=== PATIENT | female | born 1980 | race Caucasian/White ===

== ENCOUNTER 2017-08-07 11:36 | Emergency (ER) | payer OTHER ==
[~2017-08-07] VITALS: Ht 165.1 cm; Wt 112.7 kg
[2017-08-07 12:47] LABS: HEMATOCRIT 45.7 % (36.0-46.0); MCH 29.2 PG (29.0-34.0); MCHC 33.7 G/DL (30.0-36.0); MCV 86.7 FL (83-99); MEAN PLAT.VOLUME 9.5 uM^3 (9.5-12.4); PLATELET COUNT 294 K/uL (156-360); RBC DIS.WIDTH-CV 12.1 % (11.8-14.6); RBC DIS.WIDTH-SD 38.8 % (39-53); RED BLOOD COUNT 5.27 M/uL (3.80-5.20); WHITE BLOOD COUNT 12.5 K/uL (4.1-10.2)
[2017-08-07 12:57] LABS: CHLORIDE 110 mEq/L (99-109); POTASSIUM 4.3 mEq/L (3.7-5.4); SODIUM 139 mEq/L (136-147)
[2017-08-07 12:59] LABS: GLUCOSE 94 mg/dL (70-99)
[2017-08-07 13:00] LABS: ANION GAP 8 MEQ/L (2-14)
[2017-08-07 13:03] LABS: GFR ESTIMATE (CALCULATED) > 59 mL/min/
[2017-08-07 13:04] LABS: UREA NITROGEN (BUN) 8 mg/dL (9-23)
[2017-08-07 13:12] LABS: QUANTITATIVE HCG < 4.0 MIU/ML; TROP-I INTERPRETATION NEGATIVE; TROPONIN-I < 0.01 ng/mL (0.0-0.30)
[2017-08-07 13:16] LABS: D-DIMER ELISA < 150.00 ng/mLDDU (<230)
[2017-08-07] MEDS ORDERED: PROPRANOLOL HC120 MG PO (13:43)
[2017-08-07] MEDS ORDERED: DEPO-PROVER150 MG/ML IM (13:44)
[2017-08-07] MEDS ORDERED: HYOSCYAMINE0.375 MG PO (13:45)
[2017-08-07] MEDS ORDERED: OMEPRAZOLE40 M1 PO (13:45)
[2017-08-07] MEDS ORDERED: ATARAX,VISTARIL25 MG PO (13:47)
[2017-08-07] MEDS ORDERED: EFFEXOR XR37.5 MG PO (13:48)
[2017-08-07 15:12] LABS: TROP-I INTERPRETATION NEGATIVE; TROPONIN-I < 0.01 ng/mL (0.0-0.30)
[2017-08-07 15:50] VITALS: BP 137/80
== END 2017-08-07 16:12 | disposition home or self-care (01) ==
LOC: EME 11:36
PROVIDERS: Emergency Medicine
DX: R07.89 Other chest pain (principal); R42 Dizziness and giddiness; R11.0 Nausea; I10 Essential (primary) hypertension; F17.200 Nicotine dependence, unspecified, uncomplicated
CPT/HCPCS: 71020; 80048; 84484; 84702; 85027; 85379; 93005; 99281; 99285